=== PATIENT | female | born 1985 | race Caucasian/White ===

== ENCOUNTER 2016-07-13 02:00 | Inpatient (IN) ==
[2016-07-12 23:53] LABS: Basophils # 0.1 K/mcL (0.0-0.2); Basophils % 0.4 %; Eosinophils # 0.1 K/mcL (0.0-0.6); Hemoglobin 14.3 g/dL (11.5-15.4); Immature Granulocytes % 0.6 % (0-4); Lymphocytes # 2.6 K/mcL (0.6-4.6); Lymphocytes % 20.7 %; Mean Corpuscular Hemoglobin 29.9 pg (28.0-33.3); Mean Corpuscular Volume 87.9 fL (83.0-100.0); Monocytes % 7.7 %; Neutrophils # 8.7 K/mcL (1.6-8.9); Platelet Count 151 K/mcL (140-400); Red Blood Count 4.78 M/mcL (3.82-4.97); Red Cell Distribution Width 12.6 % (11.5-14.5); Segmented Neutrophils % 69.6 %
[2016-07-13 00:17] LABS: Alanine Aminotransferase 14 Units/L (0-55); Aspartate Amino Transferase 14 Units/L (5-34); BUN/Creatinine Ratio 9 (6-26); Blood Urea Nitrogen 7 mg/dL (7-20); Lactate Dehydrogenase 187 Units/L (159-327); Uric Acid 5.4 mg/dL (2.6-6.0); eGFR For African Americans > 60 (> 60); eGFR For Non-African Americans > 60 (> 60)
--- NOTE | 2016-07-13 01:59 | OB/GYN History & Physical ---
Date of Encounter: 07/13/16 Time of Encounter: 01:54 Assessment and Plan (1) 38 weeks gestation of Current visit: Yes Status: Acute admit for delivery (2) Gestational hypertension Current visit: Yes Status: Acute PIH labs within normal limits Qualifiers: Trimester: third trimester Qualified Code(s): O13.3 - Gestational [ -induced] hypertension without significant proteinuria, third trimester (3) Active labor at term Current visit: No Status: Acute Admit for labor PIH labs within normal limits. History of Present Illness Chief complaint: Spontaneous labor HPI: Ms. Murcia is a 30 year old female @ 38w5d presents to labor and delivery with contractions that started yesterday at 0630. Patient reports contractions became closer together and more intense as the day went on. Patient denies LOF or VB. Patient reports +FM. Patient also has had elevated BPs with diastolic in the 90's and two that were over 100. PIH labs within normal limits. Patient denies any headache, dizziness or blurred vision. Patient was dilated 3.5cm and has progressed to 5/80/-1 per RN. Will admit for delivery due to cervical change and gestational hypertension. Blood type: A+, Rubella: immune, Hep B: Nonreactive, GBS: Negative. Past Med Surg Social Fam HX - Past Medical History Medical history: no medical history Psychiatric history: no psych history - Past Surgical History Surgical History: cholecystectomy - Social History Smoking Status: Never smoker Smokeless Tobacco Status: No Alcohol use: none Drug use: none - Family History Mother Age: 53 Living Status: Still Living Hx Family Cardiac Disorders: No Hx Family Respiratory Disorders: No Hx Family Cancer: No Hx Family GI Disorders: No Hx Family Genitourinary Disorders: No Hx Family Endocrine Disorder: No Hx Family Musculoskeletal Disorders: No Hx Family Neuromuscular Disorders: No Hx Family Neurologic Disorders: No Hx Family HEENT Disorders: No Hx Family Autoimmune Disorders: No Hx Family Reproductive Disorders: No Hx Family Psychosocial Disorders: No Hx Family Medical Disorders: No Obstetrical History - Pregnancies : 2 Para: 1 Term: 1 : 0 Ab's: 0 Livin Medications and Allergies Formula Tablet 1 tab PO DAILY 07/12/16 [History] Allergies Amoxicillin Allergy (Verified 07/12/16 22:42) Rash Review of System OB - Constitutional Constitutional ROS IM: no fever(s), no headache(s) - Cardiovascular Cardiovascular: no edema, no palpitations, no rapid heart rate, no slow heart rate, no syncope - Respiratory Respiratory: no cough, no dyspnea - Gastrointestinal Gastrointestinal: no constipation, no diarrhea, no heartburn, no nausea, no vomiting - Genitourinary Genitourinary: no dysuria, no urinary frequency, no vaginal discharge, no vaginal odor Exam - Vital Signs Vital signs: Initial Vital Signs Temp Pulse Resp BP 97.9 F 78 16 143/88 07/12/16 22:34 07/12/16 22:34 07/12/16 22:34 07/12/16 22:34 - Constitutional Constitutional: well developed, well nourished, no acute distress, average body habitus - HEENT HEENT: Normocephaly, Mucus Membranes Moist - Neck Neck exam: full ROM, supple - Lungs Respiratory exam: CTAB - Cardiovascular Cardiovascular exam: RRR, +S1, +S2 - Abdomen Abdomen: Present: bowel sounds normal, gravid, non tender - Extremities Extremities exam: full ROM, normal capillary refill, normal inspection Deep Tendon Reflex Grade: 2+ Normal - Cervix Dilation: 5 Effacement: 80 Station: -1 - Uterus Uterus exam: Present: normal size, normal contour - Anus/Rectum Anus/Rectum: Present: normal perianal skin - Comments Comments: FHR 135 bpm moderate variability +15x15 accels no decels noted. Contractions every 1-2.5 min apart. Cat. 1 tracing. Results Result Diagrams: 07/12/16 23:40 07/12/16 23:40 Abnormal lab results WBC 12.5 K/mcL (4.3-11.1) H 07/12/16 23:40 MPV 13.0 fL (9.4-12.4) H 07/12/16 23:40 All other labs normal. - VTE Reasons for not Prescribing Prophylaxis: Treatment not Indicated - Low risk for VTE
[~2016-07-13 02:00] MED LIST: *HR* Nalbuphine 20 MG/ML AMPUL IVP PRN; Famotidine 20 MG/2 ML VIAL IVP PRN; Naloxone 0.4 MG/ML INJ IVP PRN; Ondansetron 4 MG/2 ML VIAL IVP PRN; Ringers Solution, Lactated 1,000 ML IVC SCH; Ringers Solution, Lactated 1,000 ML ONE
[2016-07-13] MEDS ORDERED: Oxytocin 20 units/ LR 1000 mL 20 UNIT/1,000 ML BAG IVC ONE ×2 (02:25→05:45)
[2016-07-13] MEDS ORDERED: *HR* Ropivacaine/PF 0.2% 10 ML AMPUL EP ONE (02:30)
[2016-07-13] MEDS ORDERED: Epidural Premix (fent/bupiv) 110 ML EP SCH (02:30)
[2016-07-13] MEDS ORDERED: *HR* FentaNYL (PF) 100 MCG/2 ML VIAL EP ONE (02:30)
[2016-07-13] MEDS ORDERED: *HR* FentaNYL (PF) 100 MCG/2 ML VIAL ONE (02:32)
[2016-07-13] MEDS ORDERED: Epidural Premix (fent/bupiv) 110 ML EP ONE (02:33)
[2016-07-13] MEDS ORDERED: *HR* Ropivacaine/PF 0.2% 10 ML AMPUL ONE (02:33)
--- NOTE | 2016-07-13 03:01 | Anesthesia Evaluation PreOp ---
Date of Encounter: 07/13/16 Time of Encounter: 02:59 - Past History Planned Operation: derick Cardiac History: Denies any Significant Hx Pulmonary History: Denies Any Significant HX MANAGER BANKING History: Denies Any Significant HX Other Medical History: GERD Anesthesia History: No Prior Anesthetic Complications, Past Anesthesia (derick, slmie), Problems (none) : Yes Test: Positive Alcohol Use: none Drug use: none Medications and Allergies Formula Tablet 1 tab PO DAILY 07/12/16 [History] Allergies Amoxicillin Allergy (Verified 07/12/16 22:42) Rash - Meds/Allergy Pre-op Review Medications Reviewed: Yes Allergies Reviewed: Yes Beta Blockers on Current Med List: No Anesthesia Results - Labs 07/12/16 23:40 07/12/16 23:40 Anesthesia Exam Vital Signs/O2 Sat, Most Current Temp Pulse Resp BP 97.9 F 78 16 143/88 07/12/16 22:34 07/12/16 22:34 07/12/16 22:34 07/12/16 22:34 Height: 5'11" Weight: 119 kg NPO (# of Hours): 5 Pain Scale: 8 Pain Scale Used: Numeric (1 - 10) - HEENT Pupil (Motor): Pupils equal Mallampati: II Teeth: Normal Oral Opening: Greater than 3 - MANAGER BANKING LOC: Oriented MANAGER BANKING Motor: Normal RUE, Normal LUE, Normal RLE, Normal LLE, Normal Face MANAGER BANKING Sensory: Normal: RUE, LUE, RLE, LLE, Face - Cardiac Rhythm: Regular Murmur: None - Pulmonary Breath Sounds: bilateral Clear Respiratory Effort: Symmetrical Anesthesia Assess/Plan ASA Score: 2 Modified Debbi Scale for Level of Consciousness: Cooperative, oriented, and tranquil Anesthetic Plan: Regional Monitoring Plan: Standard Monitors (risks discussed, questions answered, consented) Recovery Plan: Other
--- NOTE | 2016-07-13 03:04 | Anesthesia Procedures ---
Date of Encounter: 07/13/16 Time of Encounter: 03:02 Procedures: Anesthesia - Epidural/Spinal Patient ID/Chart reviewed: Yes Patient examined: Yes OB Eval: Gestational age: 38.4 OB Eval: : 2 OB Eval: Hx Para: 1 OB Eval: Dilated at (cm): 8 OB Eval: Contractions: Non-stressed pattern Consent Obtained: Yes Supplemental Oxygen: None/Room Air Site Prep: Aseptic Technique, Sterile prep and drape, 0.5% Chlorhexidine/Alcohol Patient position: upright Local Anesthetic: Lidocaine 1% Amount of Local Anesthetic used: 3 Touhy Needle Gauge: 18 Touhy Needle Depth (cm): 10 Catheter Depth at Skin (cm): 20 Test Dose (1.5% Lido + Epi): Volume given (mls): 3 Test Dose Result: Negative Loading Dose: Fentanyl (mcg): 100 Loading Dose: Other: rop 0.2% 10 cc Loading Dose Administered: Thru Touhy Needle Infusion Med: 0.125% Bupivacaine w/ 2 mcg/ml Fentanyl Infusion Rate (mls/hr): 15 (pcea 5cc q 30") Catheter Secured in Place: Tegaderm Interspace Used: L2-L3 Loss of Resistance (MARLENY): Yes Blood: No CSF: No Paresthesia: No Procedure: aseptic throughout, tolerated well Vitals + FHT's: 140/80 108 16 fht 145
[2016-07-13] MEDS ORDERED: EPHEDrine 50 MG/ML VIAL ONE (03:10)
[2016-07-13] MEDS ORDERED: Lidocaine/EPI 1:100k 1% 30 ML VIAL ONE (03:49)
--- NOTE | 2016-07-13 04:13 | OB/GYN Procedure Note ---
Delivery - Delivery Date: 07/13/16 Provider: Roseann Duarte Intrapartum events: none Delivery induction: none Delivery augmentation: rupture of membranes Delivery monitor: external FHT, external uterine Anesthesia: epidural Estimated Blood Loss: 150 - (s) Infant A Delivery Date: 07/13/16 Infant Delivery Time: 03:44 Presentation: vertex Position: NAHUM Route of delivery: Gender: Female Viability: Viable Pounds: 6 Ounces: 11 Weight Gram: 3030 kg at 1 minute: 8 at 5 mins: 8 Shoulder Dystocia: not encountered Placenta: spontaneous Cord: nuchal cord (x1 loose), 3 umbilical vessels, nuchal reduced - Repair Episiotomy: none Laceration Description: Labial (right labial repaired with 4-0 vicryl) - Complications Delivery complications: none - Disposition Mom disposition: stable in LDR Mcdermitt disposition: stable in LDR - Comments Comments: Called to LDR patient reports feeling pressure. Patient was complete and +1 station. Patient prepped for delivery and began pushing with contractions. Patient delivered a viable female infant over and intact perineum. Nuchal cord x1 was noted and easily reduced. No meconium or shoulder dystocia was encountered. was placed on maternal abdomen. Cord was clamped and cut after pulsation ceased. A small right labial abrasion was repaired with 4-0 vicryl. Patient tolerated well. Placenta delivered spontaneously and intact. Pericare was provided, ice pack to perineum. Both mother and are stable in LDR.
[2016-07-13] MEDS ORDERED: Oxytocin 20 units/ LR 1000 mL 20 UNIT/1,000 ML BAG IVC SCH (07:38)
[2016-07-13] MEDS ORDERED: Lanolin 7 G OINT...G. TP PRN (07:38)
[2016-07-13] MEDS ORDERED: Benzocaine/Menthol 56 GM AEROSOL SPRAY TP PRN (07:38)
[2016-07-13] MEDS ORDERED: Acetaminophen 325 MG TABLET PO PRN (07:38)
[2016-07-13] MEDS ORDERED: *HR* HYDROcodone/Acet 5/325 mg TABLET PO PRN (07:38)
[2016-07-13] MEDS ORDERED: Ibuprofen 600 MG TABLET PO PRN (07:38)
[2016-07-13] MEDS: Prenatal Vit/FA 1 EACH TABLET PO SCH (08:02)
[2016-07-14 03:41] LABS: Basophils % 0.2 %; Eosinophils # 0.2 K/mcL (0.0-0.6); Eosinophils % 1.7 %; Hematocrit 39.8 % (35.3-44.9); Hemoglobin 13.4 g/dL (11.5-15.4); Immature Granulocytes % 0.7 % (0-4); Lymphocytes # 2.5 K/mcL (0.6-4.6); Lymphocytes % 19.4 %; Mean Corpuscular HGB Conc 33.7 g/dL (31.6-35.5); Mean Corpuscular Hemoglobin 30.1 pg (28.0-33.3); Mean Corpuscular Volume 89.4 fL (83.0-100.0); Mean Platelet Volume 12.5 fL (9.4-12.4); Monocytes % 7.4 %; Neutrophils # 9.2 K/mcL (1.6-8.9); Platelet Count 119 K/mcL (140-400); Red Blood Count 4.45 M/mcL (3.82-4.97); Red Cell Distribution Width 12.9 % (11.5-14.5); Segmented Neutrophils % 70.6 %
[2016-07-14 03:52] LABS: Alanine Aminotransferase 17 Units/L (0-55); Aspartate Amino Transferase 26 Units/L (5-34); BUN/Creatinine Ratio 10 (6-26); Blood Urea Nitrogen 8 mg/dL (7-20); Lactate Dehydrogenase 255 Units/L (159-327); Uric Acid 4.9 mg/dL (2.6-6.0); eGFR For African Americans > 60 (> 60); eGFR For Non-African Americans > 60 (> 60)
[2016-07-14] MEDS: Prenatal Vit/FA 1 EACH TABLET PO SCH (08:04)
--- NOTE | 2016-07-14 08:57 | Discharge Summary ---
Date of Encounter: 07/14/16 Time of Encounter: 08:54 - Discharge Diagnosis (1) Vaginal delivery Priority: Primary Status: Acute Comments: Pt states feels well. pain well managed on po pain medication. No other complaints. Desires discharge (2) Gestational hypertension Priority: Primary Status: Acute Qualifiers: Trimester: third trimester Qualified Code(s): O13.3 - Gestational [ -induced] hypertension without significant proteinuria, third trimester - Discharge Medications Prescriptions: Ibuprofen [Motrin] 600 mg PO Q6HR PRN #60 tablet PRN Reason: Cramping Docusate [Colace] 100 mg PO BID #60 capsule Home Medications: Formula Tablet 1 tab PO DAILY 07/12/16 [History] Acetaminophen [Tylenol] 650 mg PO Q6HR PRN #0 tablet 07/14/16 [Rx] Benzocaine/Menthol [place]wood [Dermoplast [place]wood] 1 appl TP QID PRN #0 aerosol [Rx] Breast Pump [BREAST PUMP] 1 each .ROUTE AD #1 each 07/14/16 [Rx] Docusate [Colace] 100 mg PO BID #60 capsule 07/14/16 [Rx] Ibuprofen [Motrin] 600 mg PO Q6HR PRN #60 tablet 07/14/16 [Rx] Lanolin [Lansinoh] 1 appl TP TID PRN #0 oint...g. 07/14/16 [Rx] Vit/FA 1 each PO DAILY tablet 07/14/16 [Rx] Allergies/Adverse Reactions: Allergies Amoxicillin Allergy (Verified 07/12/16 22:42) Rash Data Procedures and tests throughout hospitalization: Laboratory Tests 07/12/16 07/12/16 07/14/16 23:40 23:40 03:32 WBC 12.5 H 13.0 H RBC 4.78 4.45 Hgb 14.3 13.4 Hct 42.0 39.8 MCV 87.9 89.4 MCH 29.9 30.1 MCHC 34.0 33.7 RDW 12.6 12.9 Plt Count 151 119 L MPV 13.0 H 12.5 H Immature Gran % 0.6 0.7 Seg Neutrophils % 69.6 70.6 Lymphocytes % 20.7 19.4 Monocytes % 7.7 7.4 Eosinophils % 1.0 1.7 Basophils % 0.4 0.2 Neutrophils # 8.7 9.2 H Lymphocytes # 2.6 2.5 Monocytes # 1.0 1.0 Eosinophils # 0.1 0.2 Basophils # 0.1 0.0 BUN 7 Creatinine 0.74 Est GFR ( Amer) > 60 Est GFR (Non-Af Amer) > 60 BUN/Creatinine Ratio 9 Uric Acid 5.4 AST 14 ALT 14 Lactate Dehydrogenase 187 07/14/16 03:32 WBC RBC Hgb Hct MCV MCH MCHC RDW Plt Count MPV Immature Gran % Seg Neutrophils % Lymphocytes % Monocytes % Eosinophils % Basophils % Neutrophils # Lymphocytes # Monocytes # Eosinophils # Basophils # BUN 8 Creatinine 0.78 Est GFR ( Amer) > 60 Est GFR (Non-Af Amer) > 60 BUN/Creatinine Ratio 10 Uric Acid 4.9 AST 26 ALT 17 Lactate Dehydrogenase 255 Labs on day of discharge: Labs from last 24 hours 07/14/16 07/14/16 03:32 03:32 WBC 13.0 H RBC 4.45 Hgb 13.4 Hct 39.8 MCV 89.4 MCH 30.1 MCHC 33.7 RDW 12.9 Plt Count 119 L MPV 12.5 H Immature Gran % 0.7 Seg Neutrophils % 70.6 Lymphocytes % 19.4 Monocytes % 7.4 Eosinophils % 1.7 Basophils % 0.2 Neutrophils # 9.2 H Lymphocytes # 2.5 Monocytes # 1.0 Eosinophils # 0.2 Basophils # 0.0 BUN 8 Creatinine 0.78 Est GFR ( Amer) > 60 Est GFR (Non-Af Amer) > 60 BUN/Creatinine Ratio 10 Uric Acid 4.9 AST 26 ALT 17 Lactate Dehydrogenase 255 Date of admission: 07/13/16 02:01 Primary care physician: PCP NO Consults: 07/13/16 07:38 Consult to Administrative Officer [CONS] Routine Comment: Vaginal delivery, consult needed Discharging clinician: Hortencia Acuna Anticipated date of discharge: 07/14/16 - Patient Status Disposition: Home, Self-Care Condition: Good Functional capacity at discharge: independent ambulation Overall status at discharge: patient is back to baseline - Discharge Instructions Instructions: Chronic Hypertension (DC) Follow Up With: NO,PCP [Primary Care Provider] - Roseann Duarte CNM [Non-Partnered Physician] - - Diet and Activity Activity: resume usual activities as tolerated Diet: regular diet Hospital Course Reason for admission: IUP at term Delivery: Episiotomy: none Laceration: other (labial) Other procedures: none complications: none Discharge diagnosis: IUP at term delivered [place] baby: female Hospital course: Delivery - Delivery Date: 07/13/16 Provider: Roseann Duarte Intrapartum events: none Delivery induction: none Delivery augmentation: rupture of membranes Delivery monitor: external FHT, external uterine Anesthesia: epidural Estimated Blood Loss: 150 - Infant (s) Infant A Infant Delivery Date: 07/13/16 Delivery Time: 03:44 Presentation: vertex Position: NAHUM Route of delivery: Gender: Female Viability: Viable Pounds: 6 Ounces: 11 Weight Gram: 3030 kg at 1 minute: 8 at 5 mins: 8 Shoulder Dystocia: not encountered Placenta: spontaneous Cord: nuchal cord (x1 loose), 3 umbilical vessels, nuchal reduced - Repair Episiotomy: none Laceration Description: Labial (right labial repaired with 4-0 vicryl) - Complications Delivery complications: none - Disposition Mom disposition: stable in , appropriate for discharge Time Attestation: Total time spent providing and/or coordinating discharge services: Exam - Constitutional Vitals: Temp Pulse Resp BP Pulse Ox 98 F 60 14 141/92 99 07/13/16 20:35 07/14/16 03:25 07/13/16 20:35 07/14/16 03:25 07/13/16 20:35 General appearance IM: A&O X 3, pleasant, no acute distress - Respiratory Respiratory exam: Present: CTAB - Cardiovascular Cardiovascular exam IM: Present: RRR, +S1, +S2 - GI/Abdominal GI/Abdominal exam IM: normal bowel sounds, soft - Uterine Tone: Firm Uterus Position: Midline - Extremities Exam Extremities exam IM: Present: normal capillary refill, normal inspection - Neurological Exam Neurological exam: normal gait, oriented X3 - Psychiatric Additional comments: reports good mood
[2016-07-14 08:58] VITALS: BP 150/95
== END 2016-07-14 09:45 | disposition home or self-care (01) | DRG 775 ==
LOC: 1NENULAB → 1NENUOBS 05:57
PROVIDERS: ADMIT Advanced Practice Midwife; ATTEND Obstetrics & Gynecology